=== PATIENT | female | born 1985 | race Caucasian/White ===

== ENCOUNTER 2017-02-17 15:04 | Outpatient (CLI) | payer OTHER ==
[~2017-02-17] VITALS: Ht 157.5 cm; Wt 67.8 kg
[2017-02-17 15:20] VITALS: BP 124/75
[2017-02-18] MEDS ORDERED: PRENTAB9 PO (11:48)
[2017-02-18] MEDS ORDERED: TUMS500C PO (11:48)
== END 2017-02-17 16:20 | disposition home or self-care (01) ==
LOC: M LDO 15:04
PROVIDERS: ATTEND Obstetrics & Gynecology
DX: O47.03 False labor before 37 completed weeks of gestation, third trimester (principal); Z3A.35 35 weeks gestation of pregnancy

== ENCOUNTER 2017-02-18 10:52 | Outpatient (CLI) | payer OTHER ==
[~2017-02-18] VITALS: Ht 157.5 cm; Wt 66.1 kg
[2017-02-18 11:10] VITALS: BP 108/67
[2017-02-18] MEDS ORDERED: TUMS500C PO (11:48)
[2017-02-18] MEDS ORDERED: PRENTAB9 PO (11:48)
[2017-02-18] MEDS ORDERED: LR 1,000 ML IV SCH (12:00)
[2017-02-18] MEDS ORDERED: DOCUSATE SODIUM 100 MG CAP PO PRN (12:15)
[2017-02-18] MEDS ORDERED: PERCOCET 5MG/325MG TAB PO PRN ×2 (12:15)
[2017-02-18] MEDS ORDERED: PROMETHAZINE 25 MG TAB PO PRN (12:15)
[2017-02-18] MEDS ORDERED: MOM 30ML SUSPENSION UDC PO PRN (12:15)
[2017-02-18] MEDS ORDERED: RHOGAM 300 MCG (1500 IU) INJ (J2790) IM SCH (12:15)
[2017-02-18] MEDS ORDERED: MEASLES,MUMPS,RUBELLA VACCINE INJ (MMR-II) (90707) SC SCH (12:15)
[2017-02-18] MEDS ORDERED: ONDANSETRON 4MG/2ML VIAL (J2405) IV PRN (12:15)
[2017-02-18] MEDS ORDERED: KETOROLAC 30 MG/ML VIAL (J1885) IV SCH (13:00)
[2017-02-19] MEDS ORDERED: PRENATAL VITAMINS CHEWABLE TABLET PO SCH (09:00)
== END 2017-02-18 12:58 | disposition home or self-care (01) ==
LOC: M LDO 10:52
PROVIDERS: ATTEND Student in an Organized Health Care Education/Training Program
DX: O47.03 False labor before 37 completed weeks of gestation, third trimester (principal); Z3A.35 35 weeks gestation of pregnancy

== ENCOUNTER 2017-02-25 15:35 | Outpatient (CLI) | payer OTHER ==
[~2017-02-25] VITALS: Ht 157.5 cm; Wt 68.6 kg
[~2017-02-25 15:35] MED LIST: PRENTAB9 PO; TUMS500C PO
[2017-02-25 15:50] VITALS: BP 108/81
--- NOTE | 2017-02-25 17:50 | IPNPDOC ---
Text Note Date of Service The patient was seen on 02/25/17. NOTE Giselle is a 31yo with SIUP at 36w5d presenting with questionable loss of fluid and contractions. She states she has had ctx since 299 and states they are now 4 minutes apart. She isn't sure if she is leaking or not, may be vaginal discharge. Feels movement, no vaginal bleeding. Hx significant for 2 prior deliveries at 34 and 36wk. The 36wk delivery was for breech when presenting in labor. She desires TOLAC. 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 Negative valsalva/pooling. SCE: 2/50/-2 TAUS: lopez IUP in cephalic presentation, anterior placenta, +FCA, +FM, JULIO 11cm Cat I FHRT with bl 140's, +accels, -decels, mod deni [place]: irregular ctx, palpate mild Labs: Negative ferning Negative nitrazine Assessment: Giselle is a 31yo with SIUP at 36w5d with no evidence of labor or ROM. Negative nitrazine/ferning/valsalva/pooling and JULIO 11cm. SCE 2/50 /-2, no evidence of active labor. Reassuring status. Vitals wnl. Plan: -Safe for discharge -Return precautions discussed -Keep next routine OB appt Dr. Jaylene Malone MD [facility] VS,Atiya, I+O VSAtiya, I+O Vital Signs Date Time Temp Pulse Resp B/P (MAP) Pulse Ox O2 Delivery O2 Flow Rate FiO2 02/25/17 15:50 98.8 109 18 108/81 (90) Room Air Jaylene Malone MD Feb 25, 2017 17:50
== END 2017-02-25 15:37 | disposition home or self-care (01) ==
LOC: M LDO 15:35
PROVIDERS: ATTEND Obstetrics & Gynecology
DX: O47.03 False labor before 37 completed weeks of gestation, third trimester (principal); Z3A.36 36 weeks gestation of pregnancy

== ENCOUNTER 2017-03-16 20:20 | Outpatient (CLI) | payer OTHER | END 2017-03-16 23:20 | disposition home or self-care (01) | LOC: M LDO 20:20 | DX: O47.1 False labor at or after 37 completed weeks of gestation (principal); Z3A.39 39 weeks gestation of pregnancy; Z79.899 Other long term (current) drug therapy | CPT/HCPCS: 59025 ==

== ENCOUNTER 2017-03-20 12:23 | Outpatient (CLI) | payer OTHER | END 2017-03-20 14:20 | disposition home or self-care (01) | LOC: M LDO 12:23 | DX: O62.4 Hypertonic, incoordinate, and prolonged uterine contractions (principal); Z3A.40 40 weeks gestation of pregnancy | CPT/HCPCS: 59025 ==

== ENCOUNTER 2017-03-20 18:49 | Inpatient (IN) | payer OTHER ==
[2017-03-20] MEDS: LR 1,000 ML IV (19:05)
[2017-03-20] MEDS: LACTATED RINGER'S 1000 ML IV (19:15)
[2017-03-20] MEDS ORDERED: OXYTOCIN 30 UNITS IN 0.9% NaCl 500ML IV BAG (J2590) As Ordered (19:21)
[2017-03-20] MEDS ORDERED: FENTANYL 2MCG/ML ROPIVACAINE 0.2% IN 0.9% NACL 200ML IVBAG As Ordered (19:21)
[2017-03-20 19:53] LABS: HEMATOCRIT 30.5 % (36.0-47.0); HEMOGLOBIN 10.3 g/dl (12.0-16.0); MEAN CORPUSCULAR HEMOGLOBIN 30.6 pg (27.0-33.0); MEAN CORPUSCULAR HGB CONC 33.8 g/dl (32.0-36.5); MEAN CORPUSCULAR VOLUME 90.5 fl (80.0-96.0); PLATELET COUNT, AUTOMATED 273 10^3/uL (150-450); RED BLOOD COUNT 3.37 10^6/uL (4.00-5.40); RED CELL DISTRIBUTION WIDTH 14.6 % (11.5-14.5); WHITE BLOOD COUNT 15.3 10^3/uL (4.0-10.0)
[2017-03-20] MEDS ORDERED: diphenhydrAMINE INJ 50MG/ML VIAL (J1200) IV (21:30)
[2017-03-20] MEDS ORDERED: FENTANYL/ROPIVACAINE/NACL BAG 200 ML EPIDURAL (21:30)
[2017-03-20] MEDS ORDERED: ePHEDrine SULFATE 25 MG/5 ML(5MG/ML) SYRINGE IV (21:30)
[2017-03-20] MEDS ORDERED: REFRIGERATOR IV KEYS XX (21:30)
[2017-03-20] MEDS ORDERED: EPIDURAL COMMENT XX (21:30)
[2017-03-20] MEDS ORDERED: EPIDURAL/PCA KEYS XX (21:30)
[2017-03-20] MEDS ORDERED: NALOXONE INJ 0.4 MG/1 ML VIAL (J2310) IV (21:30)
[2017-03-20] MEDS ORDERED: ONDANSETRON 4MG/2ML VIAL (J2405) IV (21:30)
[2017-03-20] MEDS ORDERED: OXYTOCIN DRIP 30 UNITS in APPROPRIATE DILUENT 1 EA IV (23:23)
[2017-03-20 23:25] LABS: CORD GAS ABE A -4.9; CORD GAS HCO3 A 21.9 MEQ/L; CORD GAS O2 SAT A 23.6 %; CORD GAS PCO2 A 46.8 mmHg; CORD GAS PH A 7.288 UNITS; CORD GAS SBC A 18.7 MEQ/L; CORD GAS TCO2 A 23.3 MEQ/L
[2017-03-20 23:26] LABS: CORD GAS ABE V -3.5; CORD GAS HCO3 V 20.4 MEQ/L; CORD GAS O2 SAT V 70.3 %; CORD GAS PCO2 V 34.2 mmHg; CORD GAS PH V 7.393 UNITS; CORD GAS PO2 V 27.9 mmHg; CORD GAS SBC V 20.8 MEQ/L; CORD GAS TCO2 V 21.4 MEQ/L
[2017-03-20] MEDS ORDERED: DOCUSATE SODIUM 100 MG CAP PO (23:30)
[2017-03-20] MEDS ORDERED: MEASLES,MUMPS,RUBELLA VACCINE INJ (MMR-II) (90707) SC (23:30)
[2017-03-20] MEDS ORDERED: METHYLERGONOVINE MALEATE 0.2 MG TAB PO (23:30)
[2017-03-20] MEDS ORDERED: RHOGAM 300 MCG (1500 IU) INJ (J2790) IM (23:30)
[2017-03-20] MEDS ORDERED: MOM 30ML SUSPENSION UDC PO (23:30)
[2017-03-20] MEDS ORDERED: OXYTOCIN INJ 10 UNITS/ML VIAL (J2590) IV (23:30)
[2017-03-21] MEDS ORDERED: OXYTOCIN INJ 10 UNITS/ML VIAL (J2590) As Ordered (00:40)
[2017-03-21] MEDS: IBUPROFEN 800 MG TAB PO ×2 (05:54→19:28)
[2017-03-21 06:40] LABS: HEMATOCRIT 32.3 % (36.0-47.0); HEMOGLOBIN 10.5 g/dl (12.0-16.0); MEAN CORPUSCULAR HEMOGLOBIN 29.5 pg (27.0-33.0); MEAN CORPUSCULAR HGB CONC 32.5 g/dl (32.0-36.5); MEAN CORPUSCULAR VOLUME 90.7 fl (80.0-96.0); PLATELET COUNT, AUTOMATED 277 10^3/uL (150-450); RED BLOOD COUNT 3.56 10^6/uL (4.00-5.40); RED CELL DISTRIBUTION WIDTH 14.4 % (11.5-14.5); WHITE BLOOD COUNT 16.7 10^3/uL (4.0-10.0)
[2017-03-21] MEDS: ACETAMINOPHEN 500 MG TAB PO (11:09)
[2017-03-21] MEDS: PRENATAL VITAMINS CHEWABLE TABLET PO (12:09)
[2017-03-22] MEDS: LR 1,000 ML IV ×3 (02:02→02:03)
[2017-03-22] MEDS: IBUPROFEN 800 MG TAB PO (06:00)
[2017-03-22] MEDS: PRENATAL VITAMINS CHEWABLE TABLET PO (07:56)
[2017-03-22] MEDS: ACETAMINOPHEN 500 MG TAB PO (09:03)
== END 2017-03-22 13:30 | disposition home or self-care (01) | DRG 775 ==
LOC: M LDO 18:49 → M OBS 03-21 01:45 → M LDI 19:02
PROVIDERS: Obstetrics & Gynecology
PROC: 10E0XZZ Delivery of Products of Conception, External Approach (ICD-10-PCS; principal; 2017-03-20)
PROC: 0HQ9XZZ Repair Perineum Skin, External Approach (ICD-10-PCS; 2017-03-20)
PROC: 10907ZC Drainage of Amniotic Fluid, Therapeutic from Products of Conception, Via Natural or Artificial Opening (ICD-10-PCS; 2017-03-20)
DX: O34.211 Maternal care for low transverse scar from previous cesarean delivery (principal); Z37.0 Single live birth; Z3A.40 40 weeks gestation of pregnancy; O48.0 Post-term pregnancy; O70.0 First degree perineal laceration during delivery

== ENCOUNTER 2017-06-15 09:30 | Day surgery (SDC) | payer OTHER ==
[2017-06-15] MEDS ORDERED: LR 1,000 ML IV ×3 (09:45→13:00)
[2017-06-15 09:55] LABS: HEMATOCRIT 38.2 % (36.0-47.0); HEMOGLOBIN 12.4 g/dl (12.0-15.5); MEAN CORPUSCULAR HEMOGLOBIN 29.6 pg (27.0-33.0); MEAN CORPUSCULAR HGB CONC 32.5 g/dl (32.0-36.5); MEAN CORPUSCULAR VOLUME 91.2 fl (80.0-96.0); PLATELET COUNT, AUTOMATED 260 10^3/uL (150-450); RED BLOOD COUNT 4.19 10^6/uL (4.00-5.40); RED CELL DISTRIBUTION WIDTH 14.3 % (11.5-14.5); WHITE BLOOD COUNT 7.3 10^3/uL (4.0-10.0)
[2017-06-15 10:05] LABS: CONTROL LINE HCG INT CTR LINE PRESENT; HCG, SERUM QUALITATIVE NEGATIVE (NEGATIVE)
[2017-06-15] MEDS ORDERED: MIDAZOLAM INJ 2 MG/2 ML VIAL (J2250) As Ordered (10:49)
[2017-06-15] MEDS ORDERED: fentaNYL 100 MCG/2 ML INJECTION (J3010) As Ordered ×2 (10:50→12:34)
[2017-06-15] MEDS ORDERED: LIDOCAINE 2% INJ 100 MG/5 ML SDV (FOR ANES.) As Ordered (10:50)
[2017-06-15] MEDS ORDERED: PROPOFOL 200 MG/20 ML VIAL As Ordered (10:50)
[2017-06-15] MEDS ORDERED: ROCURONIUM BROMIDE 50 MG/5 ML VIAL As Ordered (10:50)
[2017-06-15] MEDS ORDERED: KETOROLAC 60 MG/2 ML VIAL (J1885) As Ordered (10:55)
[2017-06-15] MEDS ORDERED: ONDANSETRON 4MG/2ML VIAL (J2405) As Ordered (11:51)
[2017-06-15] MEDS ORDERED: GLYCOPYRROLATE INJ 0.2 MG/ML 2 ML VIAL As Ordered (11:53)
[2017-06-15] MEDS ORDERED: NEOSTIGMINE 10 MG/10 ML VIAL (J2710) As Ordered (11:53)
[2017-06-15] MEDS: BUPIVACAINE HCL 0.25% 30 ML VIAL As Ordered (12:07)
[2017-06-15] MEDS: fentaNYL 100 MCG/2 ML INJECTION (J3010) IV ×4 (12:42→13:03)
[2017-06-15] MEDS ORDERED: PERCOCET 5MG/325MG TAB PO (13:00)
[2017-06-15] MEDS ORDERED: ONDANSETRON 4MG/2ML VIAL (J2405) IV (13:00)
== END 2017-06-15 14:07 | disposition home or self-care (01) ==
LOC: M SDC 09:30
DX: Z30.2 Encounter for sterilization (principal); F17.210 Nicotine dependence, cigarettes, uncomplicated; Z88.0 Allergy status to penicillin
CPT/HCPCS: 58661

== ENCOUNTER 2018-07-01 09:46 | Emergency (ER) | payer OTHER ==
[~2018-07-01] VITALS: Ht 157.5 cm; Wt 47.3 kg
[~2018-07-01 09:46] MED LIST changes: +ADVI200C5 PO; +COLA100C5 PO; +MAPA500T2 PO
[2018-07-01] MEDS ORDERED: diphenhydrAMINE INJ 50MG/ML VIAL (J1200) IV ONE (10:15)
[2018-07-01] MEDS ORDERED: METOCLOPRAMIDE INJ 10MG/2ML VIAL (J2765) IV ONE (10:15)
[2018-07-01] MEDS ORDERED: KETOROLAC 30 MG/ML VIAL (J1885) IV ONE (10:15)
[2018-07-01 10:29] LABS: HEMATOCRIT 37.7 % (36.0-47.0); HEMOGLOBIN 12.8 g/dl (12.0-15.5); MEAN CORPUSCULAR HEMOGLOBIN 31.6 pg (27.0-33.0); MEAN CORPUSCULAR VOLUME 93.1 fl (80.0-96.0); PLATELET COUNT, AUTOMATED 329 10^3/uL (150-450); RED BLOOD COUNT 4.05 10^6/uL (4.00-5.40); WHITE BLOOD COUNT 11.1 10^3/uL (4.0-10.0)
[2018-07-01] MEDS ORDERED: NS 1,000 ML IV ONE (10:45)
[2018-07-01 10:47] LABS: HCG, SERUM QUALITATIVE NEGATIVE (NEGATIVE)
[2018-07-01 11:03] LABS: BLOOD UREA NITROGEN 8 MG/DL (7-18); CHLORIDE LEVEL 106 MEQ/L (98-107); CREATININE FOR GFR 0.84 MG/DL (0.55-1.30); GLOMERULAR FILTRATION RATE > 60.0 (>60); GLUCOSE, FASTING 91 MG/DL (70-100); SODIUM LEVEL 139 MEQ/L (136-145)
[2018-07-01 11:04] LABS: CALCIUM LEVEL 9.2 MG/DL (8.5-10.1); CARBON DIOXIDE LEVEL 25 MEQ/L (21-32)
--- NOTE | 2018-07-01 11:42 | REP ---
CT Head without contrast HISTORY: Migraine headache COMPARISON: None There is no intraparenchymal hemorrhage, acute infarct, mass or midline shift. The ventricular system is normal in appearance. There is no extra cerebral collection. There is no fracture. The visualized sinuses are clear. IMPRESSION: There is no intracranial lesion. Electronically Signed by Chandana Land MD 07/01/2018 11:34 A
[2018-07-01 12:29] LABS: C REACTIVE PROTEIN QUANTITATIV 6.96 MG/DL (0.00-0.30)
[2018-07-01] MEDS ORDERED: MACR100C43 PO (12:54)
[2018-07-01 13:22] VITALS: BP 93/63
[2018-07-01 15:01] LABS: ERYTHROCYTE SEDIMENTATION RATE 73 mm/hr (0-20)
== END 2018-07-01 13:23 | disposition home or self-care (01) ==
LOC: M ED 09:46
DX: G43.909 Migraine, unspecified, not intractable, without status migrainosus (principal); N39.0 Urinary tract infection, site not specified; Z77.098 Contact with and (suspected) exposure to other hazardous, chiefly nonmedicinal, chemicals
CPT/HCPCS: 70450; 80048; 81001; 81025; 84703; 85027; 85652; 86140; 87088; 87186; 96374; 96375; 99284; J1200; J1885; J2765

== ENCOUNTER → 2019-10-07 | Day surgery (SDC) | payer OTHER ==
[~2019-10-07] MED LIST changes: +ACETAMINOPHEN 650 MG SUPP ONE; +BUPIVACAINE HCL 0.25% 30ML VIAL ONE; +DOXYCYCLINE HYCLATE 100MG TABLET ONE; +HYDROmorphone HCL 2 MG/ML 1ML VIAL (J1170) ONE; +ISOVUE-370 76% 100ML VIAL ONE; +KETOROLAC 30 MG/ML 1ML VIAL ONE; +KETOROLAC 60MG 2ML VIAL ONE; +LIDOCAINE 2% 100MG/5ML SDV (FOR ANES.) ONE; +MACR100C43 PO; +METOCLOPRAMIDE INJ 10MG/2ML VIAL (J2765 PER 1) ONE; +MIDAZOLAM INJ 2MG/2ML VIAL (J2250 PER 1MG) ONE; +MORPHINE 10 MG/ML 1ML VIAL (J2270) ONE; +MORPHINE 4 MG/ML 1ML VIAL/SYRINGE (J2270) ONE; +ONDANSETRON 4MG/2ML VIAL ONE; +PHENYLephrine HCL 500 MCG/5 ML (100MCG/ML) SYRINGE (J2370) ONE; +ROCURONIUM BROMIDE 50 MG/5 ML VIAL ONE; +SUGAMMADEX SODIUM 500 MG/5 ML VIAL (BRIDION) ONE; +dexameTHASONE 4 MG/ML 1ML VIAL (J1100 PER 1MG) ONE; +fentaNYL 100 MCG/2 ML INJECTION (J3010) ONE; +oxyCODONE 5MG TAB ONE; +propofoL 200 MG/20 ML VIAL ONE
== END | disposition home or self-care (01) ==
LOC: M ED 02:48 → M SDC 07:38
PROVIDERS: ATTEND Obstetrics & Gynecology
DX: N83.201 Unspecified ovarian cyst, right side (principal); K66.1 Hemoperitoneum; J45.909 Unspecified asthma, uncomplicated; F17.218 Nicotine dependence, cigarettes, with other nicotine-induced disorders
CPT/HCPCS: 58662; 76856; 88305; J1100; J1170; J1885; J2250; J2270; J2370; J2405; J2765; J3010; Q9967; U0002

== ENCOUNTER 2020-04-30 04:19 | Emergency (ER) | payer OTHER ==
[~2020-04-30] VITALS: Ht 157.5 cm; Wt 57.7 kg
[~2020-04-30 04:19] MED LIST changes: -ACETAMINOPHEN 650 MG SUPP ONE; -BUPIVACAINE HCL 0.25% 30ML VIAL ONE; -DOXYCYCLINE HYCLATE 100MG TABLET ONE; -HYDROmorphone HCL 2 MG/ML 1ML VIAL (J1170) ONE; -ISOVUE-370 76% 100ML VIAL ONE; -KETOROLAC 30 MG/ML 1ML VIAL ONE; -KETOROLAC 60MG 2ML VIAL ONE; -LIDOCAINE 2% 100MG/5ML SDV (FOR ANES.) ONE; -METOCLOPRAMIDE INJ 10MG/2ML VIAL (J2765 PER 1) ONE; -MIDAZOLAM INJ 2MG/2ML VIAL (J2250 PER 1MG) ONE; -MORPHINE 10 MG/ML 1ML VIAL (J2270) ONE; -MORPHINE 4 MG/ML 1ML VIAL/SYRINGE (J2270) ONE; -ONDANSETRON 4MG/2ML VIAL ONE; -PHENYLephrine HCL 500 MCG/5 ML (100MCG/ML) SYRINGE (J2370) ONE; -ROCURONIUM BROMIDE 50 MG/5 ML VIAL ONE; -SUGAMMADEX SODIUM 500 MG/5 ML VIAL (BRIDION) ONE; -dexameTHASONE 4 MG/ML 1ML VIAL (J1100 PER 1MG) ONE; -fentaNYL 100 MCG/2 ML INJECTION (J3010) ONE; -oxyCODONE 5MG TAB ONE; -propofoL 200 MG/20 ML VIAL ONE
--- OUTSIDE RECORDS SUMMARY | 2020-04-30 04:27 | CCD ---
Author Author [facility] Address Unknown Phone Unavailable Support Name Relationship Address Phone Gorge Almodovar DDS Next Of Kin [address], [place] [id number] UE Next Of Kin Unknown Unavailable UN Next Of Kin Unknown Unavailable BRAD MUNSON Next Of Kin [address] [place], [place] [id number] Re-disclosure Warning The records that you are about to access may contain information from federally-assisted alcohol or drug abuse programs. If such information is present, then the following federally mandated warning applies: This information has been disclosed to you from records protected by federal confidentiality rules (42 CFR part 2). The federal rules prohibit you from making any further disclosure of this information unless further disclosure is expressly permitted by the written consent of the person to whom it pertains or as otherwise permitted by 42 CFR part 2. A general authorization for the release of medical or other information is NOT sufficient for this purpose. The Federal rules restrict any use of the information to criminally investigate or prosecute any alcohol or drug abuse patient.The records that you are about to access may contain highly sensitive health information, the redisclosure of which is protected by Article 27-F of the [facility] Public Health law. If you continue you may have access to information: Regarding HIV / AIDS; Provided by facilities licensed or operated by the [facility] Office of Mental Health; or Provided by the [facility] Office for People With Developmental Disabilities. If such information is present, then the following [facility] mandated warning applies: This information has been disclosed to you from confidential records which are protected by state law. State law prohibits you from making any further disclosure of this information without the specific written consent of the person to whom it pertains, or as otherwise permitted by law. Any unauthorized further disclosure in violation of state law may result in a fine or mcc sentence or both. A general authorization for the release of medical or other information is NOT sufficient authorization for further disc losure. Insurance Providers Payer name Policy type / Coverage type Policy ID Covered democrat ID Covered democrat's relationship to hansen Policy Hansen Plan Information [facility] [id number] [facility] O [id number] S [id number] [facility] P [id number] M [id number] [facility] [id number] HU2 [id number] [facility] U HU2 U
[2020-04-30] MEDS ORDERED: DEPO150I12 IM (04:40)
--- OUTSIDE RECORDS SUMMARY | 2020-04-30 05:08 | CCD ---
Author Author [facility] Address Unknown Phone Unavailable Support Name Relationship Address Phone Gorge Almodovar DDS Next Of Kin [address] [place], [place] [phone] UE Next Of Kin Unknown Unavailable UN Next Of Kin Unknown Unavailable BRAD MUNSON Next Of Kin [address] [place] [address] Re-disclosure Warning The records that you are [...] is protected by Article 27-F of the [place] State Public Health law. If you continue you may have access to information: Regarding HIV / AIDS; Provided by facilities licensed or operated by the [facility] Office of Mental Health; or Provided by the [facility] Office for People With Developmental Disabilities. If such information is present, then the following [facility] mandated warning applies: This information has [...] law may result in a fine or long term sentence or both. A general authorization for the release of medical or other information is NOT sufficient authorization for further disc losure. Insurance Providers Payer name Policy type / Coverage type Policy ID Covered republican ID Covered republican's relationship to hansen Policy Hansen Plan Information [facility] [id number] HU2 [id number] [facility] O [id number] S [id number] [facility] P [id number] [facility] [id number] HU2 [id number] [facility] U HU2 U
[2020-04-30 05:09] LABS: BASO % 0.4 % (0.0-1.0); EOS # 0.1 10^3/uL (0.0-0.5); EOS % 1.1 % (0.0-3.0); HEMATOCRIT 42.6 % (36.0-47.0); HEMOGLOBIN 13.7 g/dl (12.0-15.5); LYMPH # 1.9 10^3/uL (1.5-5.0); MEAN CORPUSCULAR HEMOGLOBIN 30.6 pg (27.0-33.0); MEAN CORPUSCULAR HGB CONC 32.2 g/dl (32.0-36.5); MEAN CORPUSCULAR VOLUME 95.3 fl (80.0-96.0); MONO # 0.6 10^3/uL (0.0-0.8); MONO % 8.6 % (0.0-8.0); NEUTROPHILS # 4.8 10^3/uL (1.5-8.5); NEUTROPHILS % 64.6 % (36.0-66.0); PLATELET COUNT, AUTOMATED 270 10^3/uL (150-450); RED BLOOD COUNT 4.47 10^6/uL (4.00-5.40); WHITE BLOOD COUNT 7.4 10^3/uL (4.0-10.0)
[2020-04-30 05:35] LABS: ALBUMIN 4.2 GM/DL (3.2-5.2); BILIRUBIN,DIRECT 0.1 MG/DL (0.0-0.2); BILIRUBIN,TOTAL 0.4 MG/DL (0.2-1.0); TOTAL PROTEIN 7.7 GM/DL (6.4-8.2)
[2020-04-30] MEDS ORDERED: MORPHINE 2 MG/ML 1ML VIAL (J2270) IV ONE (06:15)
[2020-04-30] MEDS ORDERED: ONDANSETRON 4MG/2ML VIAL IV ONE (06:15)
--- NOTE | 2020-04-30 07:12 | REPVR ---
PROCEDURE INFORMATION: Exam: US Pelvis Complete, Transabdominal and US Duplex Artery and Vein, Ovaries, Complete Exam date and time: 04/30/2020 6:49 AM Age: 34 years old Clinical indication: Pelvic pain; Additional info: R pelvic pain, h/o hemorrhagic cysts TECHNIQUE: Imaging protocol: Real-time transabdominal pelvic ultrasound with image documentation. Real-time duplex ultrasound scan of the arterial and venous flow of the ovaries with B-mode, color Doppler flow and spectral waveform analysis. Complete Pelvis, Complete Duplex. COMPARISON: CT ABD/PEL W/IV ORAL CONTRAS 10/07/2019 4:32 AM FINDINGS: Uterus/cervix: Uterus is normal in size, shape and echotexture measuring 8.1 x 3.5 x 5.3 cm. Endometrial stripe is normal in thickness measuring 4-5 mm. Cervix is unremarkable. Right adnexa: Right ovary measures 3.1 x 2.1 x 2.5 cm and is unremarkable. Appropriate duplex blood flow with color Doppler and arterial/venous waveforms. No evidence of torsion. No adnexal masses. Left adnexa: Left ovary measures 3.0 x 2.0 x 2.7 cm and is unremarkable. Appropriate duplex blood flow with color Doppler and arterial/venous waveforms. No evidence of torsion. No adnexal masses. Free fluid: No free fluid. Bladder: Unremarkable. IMPRESSION: Unremarkable pelvic ultrasound. No acute abnormalities are identified. Electronically signed by: Kodi Bang On 04/30/2020 07:12:33 AM
[2020-04-30] MEDS ORDERED: ISOVUE-370 76% 100ML VIAL As Ordered ONE (07:33)
--- NOTE | 2020-04-30 08:30 | REPVR ---
PROCEDURE INFORMATION: Exam: CT Abdomen And Pelvis With Contrast Exam date and time: 04/30/2020 7:39 AM Age: 34 years old Clinical indication: Abdominal pain; Localized; Right lower quadrant (rlq); Additional info: Rlq pain, R/O appendicitis TECHNIQUE: Imaging protocol: Computed tomography of the abdomen and pelvis with contrast. Radiation optimization: All CT scans at this facility use at least one of these dose optimization techniques: automated exposure control; mA and/or kV adjustment per patient size (includes targeted exams where dose is matched to clinical indication); or iterative reconstruction. Contrast material: ISOVUE 370; Contrast volume: 100 ml; Contrast route: INTRAVENOUS (IV); COMPARISON: CT ABD/PEL W/IV ORAL CONTRAS 10/07/2019 4:32 AM FINDINGS: Lungs: Mild left basilar atelectasis and/or scar. No consolidation. Liver: Diffuse fatty infiltration of the liver. Redemonstration of few subcentimeter hypodensities, too small to accurately characterize, likely cysts. Gallbladder and bile ducts: No calcified gallstones. No ductal dilatation. Pancreas: Unremarkable. No ductal dilatation. Spleen: Unremarkable. No splenomegaly. Adrenal glands: Unremarkable. No mass. Kidneys and ureters: Symmetric nephrograms. No hydronephrosis or mass. Stomach and bowel: No evidence of bowel obstruction or significant bowel wall thickening. Moderate amount of colonic fecal material. Appendix: Normal appendix. Intraperitoneal space: No free air. No significant fluid collection. Vasculature: Unremarkable. No abdominal aortic aneurysm. Lymph nodes: Unremarkable. No enlarged lymph nodes. Urinary bladder: Decompressed urinary bladder. Reproductive: Unremarkable as visualized. Bones/joints: Bones are intact. No acute fracture. Soft tissues: Unremarkable. IMPRESSION: 1. No acute abnormalities are identified. 2. Normal appendix. No evidence of appendicitis. 3. Hepatic steatosis. 4. Moderate amount of colonic fecal material. Electronically signed by: Kodi Bang On 04/30/2020 08:30:36 AM
[2020-04-30] MEDS ORDERED: MIRA3350 PO (08:38)
[2020-04-30] MEDS ORDERED: COLA100C5 PO (08:38)
[2020-04-30] MEDS ORDERED: KETOROLAC 30 MG/ML 1ML VIAL IV ONE (08:45)
[2020-04-30] MEDS ORDERED: MAGNESIUM CITRATE 300 ML BTL PO ONE (08:45)
[2020-04-30 08:53] VITALS: BP 109/67
== END 2020-04-30 08:58 | disposition home or self-care (01) ==
LOC: M ED 04:19
DX: K59.00 Constipation, unspecified (principal); K76.0 Fatty (change of) liver, not elsewhere classified; Z87.59 Personal history of other complications of pregnancy, childbirth and the puerperium; F41.9 Anxiety disorder, unspecified; F17.200 Nicotine dependence, unspecified, uncomplicated
CPT/HCPCS: 74177; 76856; 80047; 80076; 81001; 83690; 84702; 85025; 93041; 93976; 96374; 96375; 99285; J2270; J2405; Q9967

== ENCOUNTER 2021-07-12 17:47 | Emergency (ER) | payer OTHER ==
[~2021-07-12] VITALS: Ht 157.5 cm; Wt 46.2 kg
[2021-07-12 17:47] VITALS: BP 108/62
[~2021-07-12 17:47] MED LIST changes: +DEPO150I12 IM; +MIRA3350 PO
[2021-07-12] MEDS ORDERED: NAPR220C14 PO (17:55)
[2021-07-12] MEDS ORDERED: KETOROLAC TROMETHAMINE 10 MG TAB PO ONE (21:35)
[2021-07-12] MEDS ORDERED: CEPH500C PO (21:37)
== END 2021-07-12 21:50 | disposition home or self-care (01) ==
LOC: M ED 17:47
DX: S60.221A Contusion of right hand, initial encounter (principal); S60.511A Abrasion of right hand, initial encounter; W01.0XXA Fall on same level from slipping, tripping and stumbling without subsequent striking against object, initial encounter; Y92.89 Other specified places as the place of occurrence of the external cause; F41.9 Anxiety disorder, unspecified; F17.210 Nicotine dependence, cigarettes, uncomplicated; F12.20 Cannabis dependence, uncomplicated

== ENCOUNTER → 2022-06-15 | Outpatient (REF) ==
[~2022-06-15] MED LIST changes: +CEPH500C PO; +NAPR220C14 PO
== END ==
LOC: M LAB 10:19
PROVIDERS: ATTEND Nurse Practitioner Adult Health
DX: Z02.1 Encounter for pre-employment examination (principal)

== ENCOUNTER 2022-07-14 14:32 | Emergency (ER) | payer OTHER ==
[~2022-07-14] VITALS: Ht 154.9 cm; Wt 50.1 kg
[2022-07-14] MEDS ORDERED: WELLTAB38 PO (14:43)
[2022-07-14 16:11] VITALS: BP 126/80
== END 2022-07-14 16:16 | disposition home or self-care (01) ==
LOC: M ED 14:32
DX: S60.011A Contusion of right thumb without damage to nail, initial encounter (principal); S60.221A Contusion of right hand, initial encounter; W23.1XXA Caught, crushed, jammed, or pinched between stationary objects, initial encounter; F41.9 Anxiety disorder, unspecified; Y99.0 Civilian activity done for income or pay; Z79.899 Other long term (current) drug therapy

== ENCOUNTER 2022-11-21 12:48 | Emergency (ER) | payer OTHER, SELFPAY ==
[~2022-11-21] VITALS: Ht 154.9 cm; Wt 43.6 kg
[~2022-11-21 12:48] MED LIST changes: +WELLTAB38 PO
[2022-11-21] MEDS ORDERED: PRED20TA PO (17:11)
[2022-11-21 17:18] VITALS: BP 134/84; TEMP 98.8; O2SAT 100
== END 2022-11-21 17:22 | disposition home or self-care (01) ==
LOC: M ED 12:48
DX: G56.21 Lesion of ulnar nerve, right upper limb (principal); F12.10 Cannabis abuse, uncomplicated; F17.200 Nicotine dependence, unspecified, uncomplicated; F41.9 Anxiety disorder, unspecified; Z87.42 Personal history of other diseases of the female genital tract; Z79.52 Long term (current) use of systemic steroids; Z79.899 Other long term (current) drug therapy